=== PATIENT | female | born 2000 | race Caucasian/White ===

== ENCOUNTER 2020-05-13 05:42 | Observation (INO) ==
[2020-05-13 05:58] VITALS: BP 127/74
[2020-05-13] MEDS ORDERED: RINGER'S SOLUTION,LACTATED 1,000 ML IV PRN (07:58)
--- NOTE | 2020-05-13 09:24 | HP ---
Chief Complaint - Chief Complaint Date of Service: 05/13/20 Time of Service: 09:20 Chief Complaint: Fall History of Present Illness: 19 year old at 34w 5d who presented to L&D s/p fall. She slipped on the ice and then her knee hit her abdomen. She denies abdominal pain. She denies vb or lof. She initially was not feeling her ctx but now she is. Fetus is active. Medical History (Last Reviewed 05/13/20 @ 09:21 by Melissa Patterson MD) Migraines Onset Date: Unknown Body piercing Onset Date: Unknown Hypertension Onset Date: ~2018 Tattoos Onset Date: Unknown Wears contact lenses Onset Date: Unknown Labral tear of shoulder Onset Date: ~2015 right Surgical History: Surgical History (Last Reviewed 05/13/20 @ 09:21 by Melissa Patterson MD) History of appendectomy Onset Date: Unknown History of shoulder surgery Onset Date: Unknown right Family History: Family History (Last Reviewed 05/13/20 @ 09:22 by Melissa Patterson MD) Mother Alive and well Father Hypertension S/P CABG x 3 Social History: (Last Reviewed 05/13/20 @ 09:22 by Melissa Patterson MD) Social History: adopted: No fci: No Marital status: Single household members: significant other number of children: 0 current occupational status: employed current occupation: [employer] current occupational exposures/hazards: No Highest level of school completed/degree received: some college, no degree Sexually Active: Yes Service: No Tobacco: Smoking Status: Never smoker Alcohol: alcohol intake: current alcohol intake frequency: holiday/special occasion details: No alcohol since + UPT Substance Use: substance use type: does not use Dietary Habits: caffeine: No Exercise: frequency: other Lillian/Buddhism: agree to transfusion: Yes Review Of Systems (GEN) - Review of Systems Generalized/Overall Review: Present: No Symptoms Reported Misc: All systems neg except as marked Immunizations: IMMUNIZATION HX Immunizations Up to Date Yes History of Influenza Vaccine Yes Allergies/Adverse Reactions: Allergies Allergy/AdvReac Type Severity Reaction Status Date / Time No Known Allergies Allergy Verified 05/13/20 05:46 Home Medications: HOME MEDICATIONS prenat.vits,rachid,[id number] 1 tab PO DAILY 02/10/20 [Last Taken Unknown] aspirin 81 mg tablet,delayed release 81 mg PO DAILY 04/13/20 [Last Taken Unknown] magnesium 250 mg tablet 500 mg PO DAILY #30 tab 04/13/20 [Last Taken Unknown] Exam - Exam Vital Signs: Vital Signs - Last Taken Temp 35.9 C L 05/13/20 05:56 Pulse 83 05/13/20 05:56 Resp 18 05/13/20 05:56 BP 127/74 05/13/20 05:56 Pulse Ox 98 05/13/20 05:56 Constitutional: Present: Alert, Oriented x3, Cooperative, No distress ENT Exam: Present: hearing grossly normal Eye Exam: bilateral eye: normal inspection Neck: Present: normal inspection Back Exam: Present: normal inspection Breasts: Present: Exam deferred Respiratory: Present: lungs clear, normal breath sounds, no respiratory distress Cardiovascular/Chest: Present: regular rate, rhythm Abdomen: Present: soft, nontender, nondistended, no rebound tenderness Extremity: Present: non-tender, no calf tenderness Skin Exam: Present: normal color, warm/dry, no cyanosis Appearance: Present: appropriate appearance, appropriate insight, neat, no memory impairment Eye contact: Present: cooperative, good eye contact, normal speech Thoughts: Present: normal thought pattern Assessment/Plan - Narrative Narrative: 19 year old at 34w 5d 1. Fall: overnight observation due to regular contractions Collect GBS - Assessment/Plan (1) Fall Problem: Acute Qualifiers: Encounter type: initial encounter Qualified Code(s): W19.XXXA - Unspecified fall, initial encounter (2) 34 weeks gestation of Problem: Acute (3) contractions Problem: Acute (4) Chronic hypertension Problem: Acute
--- NOTE | 2020-05-14 11:37 | PN ---
Subjective - Date and Time Seen Date: 05/14/20 Time: 11:21 Subjective Narrative: Patient denies abdominal pain, vaginal bleeding or discharge, nausea/vomiting, or decreased movement. Complains of mild left ann pain from where she hit during the fall. Objective - Review of Systems Generalized/Overall Review: Reports: No Symptoms Reported EENTM: Reports: No Symptoms Reported Respiratory: Reports: No Symptoms Reported Cardiac: Reports: No Symptoms Reported Abdominal: Reports: No Symptoms Reported Genitourinary Symptoms: Reports: No Symptoms Reported Musculoskeletal Complaints: Reports: Other - left ann Neurological: Reports: No Symptoms Reported Skin: Reports: No Symptoms Reported Endocrine: Reports: No Symptoms Reported - Vitals Vitals: Last Vital Signs Temp 35.9 C L 05/13/20 05:56 Pulse 83 05/13/20 05:56 Resp 18 05/13/20 05:56 BP 127/74 05/13/20 05:56 Pulse Ox 98 05/13/20 05:56 - Exam Constitutional: Present: Alert, Oriented x3, Cooperative, No distress ENT Exam: Present: hearing grossly normal Neck: Present: non-tender, full range of motion, trachea midline. Absent: thyromegaly Breasts: Present: Exam deferred Respiratory: Present: lungs clear, no respiratory distress Cardiovascular/Chest: Present: normal peripheral pulses, regular rate, rhythm, no edema Abdomen: Present: soft, nontender, no rebound tenderness, other - gravid /Rectal: Present: Other - Cervix per nurse 150/-2 upon admission and discharge. Extremity: Present: normal range of motion, no pedal edema, no calf tenderness, other - minor abrasion on LLE ann Skin Exam: Present: normal color, warm/dry, no cyanosis Lymphatic: Present: no adenopathy Neurologic: Present: epidemiologist II-XII nml as tested, alert, normal mood/affect, oriented x 3 Appearance: Present: appropriate appearance, appropriate insight, neat, no memory impairment Eye contact: Present: cooperative Thoughts: Present: normal thought pattern, normal mood /affect Assessment/Plan - Problems/Diagnosis (1) Fall Problem: Acute Qualifiers: Encounter type: initial encounter Qualified Code(s): W19.XXXA - Unspecified fall, initial encounter (2) Threatened labor Problem: Resolved Qualifiers: Trimester: third trimester Qualified Code(s): O47.03 - False labor before 37 completed weeks of gestation, third trimester (3) At high risk for maternal or injury Problem: Acute (4) Chronic hypertension Problem: Chronic
--- NOTE | 2020-05-14 11:53 | DS ---
OB Discharge Summary (1) Fall Status: Acute Qualifiers: Encounter type: initial encounter Qualified Code(s): W19.XXXA - Unspecified fall, initial encounter (2) Threatened labor Status: Resolved Qualifiers: Trimester: third trimester Qualified Code(s): O47.03 - False labor before 37 completed weeks of gestation, third trimester (3) At high risk for maternal or injury Status: Acute (4) Chronic hypertension Status: Chronic :: 1 Para:: 0 Gestational weeks:: 33 Gestational days:: 6 Intrapartum Procedures: Undelivered - Discharge Information Date of Discharge: 05/14/20 Hospital Course: Patient presented to labor and delivery status post fall on 05/13/2020 complaining of painful contractions. Because patient was kelvin every 2 to 3 minutes she was admitted for prolonged observation to rule out abruption and labor. She made no cervical change throughout her hospitalization and her contractions resolved after several hours. She was discharged to home with abruption and labor precautions. Discharge Location: Home Disposition: Home self-care Condition: Good Activity on Discharge:: Activity as tolerated, Other - No heavy lifting or strenuous activity for the next 48 hours Complete Home Medications List: Complete Home Medication List: prenat.vits,rachid,sss-cstq-rfigv 1 tab PO DAILY 02/10/20 aspirin 81 mg tablet,delayed release 81 mg PO DAILY 04/13/20 magnesium 250 mg tablet 500 mg PO DAILY #30 tab 04/13/20 - Plan Discharge to:: Home Follow up in office in:: 1 week Follow Up Appointment:: 05/18/20
== END 2020-05-14 11:20 | disposition home or self-care (01) ==
LOC: OBCLINIC 05:42 → OB 05:42
PROVIDERS: ADMIT Obstetrics & Gynecology; ATTEND Obstetrics & Gynecology
DX: O47.03 False labor before 37 completed weeks of gestation, third trimester; W19.XXXA Unspecified fall, initial encounter; Z3A.34 34 weeks gestation of pregnancy; I10 Essential (primary) hypertension

== ENCOUNTER 2020-06-08 05:15 | Inpatient (IN) ==
[2020-06-08] MEDS ORDERED: DEXTROSE 5%-LACTATED RINGERS 1,000 ML IV PRN (05:34)
[2020-06-08] MEDS ORDERED: OXYTOCIN/0.9 % SODIUM CHLORIDE 30 UNITS/500 ML BAG IV ONE ×2 (05:34→11:56)
[2020-06-08] MEDS ORDERED: ONDANSETRON 4 MG TAB.RAPDIS PO PRN (05:34)
[2020-06-08] MEDS ORDERED: PENICILLIN G POTASSIUM 5 MILLIONUNT in DEXTROSE 5 % IN WATER 100 ML IV ONE ×2 (05:34)
[2020-06-08] MEDS ORDERED: RINGER'S SOLUTION,LACTATED 1,000 ML IV ONE (05:34)
[2020-06-08] MEDS ORDERED: ONDANSETRON HCL/PF 2 MG/ML VIAL IV PRN (05:41)
[2020-06-08] MEDS ORDERED: BUPIVACAINE HCL/0.9 % NACL/PF 250 ML EP PRN (05:41)
[2020-06-08] MEDS ORDERED: NALOXONE HCL 1 MG/1 ML SYRG IV PRN (05:41)
[2020-06-08] MEDS ORDERED: BUPIVACAINE HCL/PF 30 ML VIAL EP SCH (05:45)
--- NOTE | 2020-06-08 06:26 | ANES ---
Anesthesia Pre Procedure Eval HOME MEDICATIONS prenat.vits,rachid,vfr-[id number]-[id number] 1 tab PO DAILY 02/10/20 [Last Taken 05/27/20] aspirin 81 mg tablet,delayed release 81 mg PO DAILY 04/13/20 [Last Taken 05/27/20] magnesium 250 mg tablet 500 mg PO DAILY #30 tab 04/13/20 [Last Taken 05/27/20] Allergies/Adverse Reactions: Allergies Allergy/AdvReac Type Severity Reaction Status Date / Time No Known Allergies Allergy Verified 06/08/20 05:36 - Planned Procedure Planned Procedure: Labor Epidural Medication List Reviewed:: Yes Allergies Verified: Yes Medical History (Last Reviewed 06/08/20 @ 06:25 by Carl Ross CRNA) Bacterial vaginosis in (Acute) Migraines Onset Date: Unknown Body piercing Onset Date: Unknown Hypertension Onset Date: ~2018 Tattoos Onset Date: Unknown Wears contact lenses Onset Date: Unknown Labral tear of shoulder Onset Date: ~2015 right Surgical History (Last Reviewed 06/08/20 @ 06:25 by Carl Ross CRNA) History of appendectomy Onset Date: Unknown History of shoulder surgery Onset Date: Unknown right Family History (Last Reviewed 06/08/20 @ 06:25 by Carl Ross CRNA) Mother Alive and well Father Hypertension S/P CABG x 3 - Anesthesia Assessment and Plan ASA Class: PS, II, E Anesthesia Type Plan: Epidural
--- NOTE | 2020-06-08 06:43 | ANES ---
Anesthesia Procedure Note Procedure Note: ANESTHESIA PROCEDURE NOTE Date of Procedure: 06/08/2020. Time of procedure: 624. Performed by: Carl Ross CRNA Rug Layer: None. Preprocedure diagnosis: Active labor. Post procedure diagnosis: Same. Procedure: Insertion of labor epidural. Indications: The patient is a 19-year-old female in active labor requesting labor epidural for pain management. Findings: See below. Details of the procedure: The patient was placed in a sitting position. DuraPrep as well as Betadine swabs X3 was applied to the patient's back. Patient was then draped in a sterile fashion. Lidocaine 1% was infiltrated to the skin and subcutaneous tissues at the level of the L3-4 interspace. The epidural space was identified using a 18-gauge Tuohy needle with [id number] technique. Epidural catheter was inserted to a depth of 12 centimeters at skin. Negative test dose was elicited using 3 mL of 1.5% preservative-free lidocaine plus epinephrine 1 200,000. The epidural catheter was then taped and secured in place. A loading dose of 8 mL of 0.25% preservative-free bupivacaine was administered to the epidural catheter after negative aspiration for blood and CSF. EBL: Minimal. Fluids: N/A. Specimen: N/A. Post procedure condition: The patient tolerated the procedure well. No complications were noted. Thank you for this consultation. Carl Ross CRNA
--- NOTE | 2020-06-08 06:43 | ANES ---
Post Anesthesia Assessment - Vital Signs Airway Patency: Normal - Mental Status Level Of Consciousness: Awake - N/V Assessment Nausea/Vomiting Presence: None Dehydration:: No
--- NOTE | 2020-06-08 07:05 | HP ---
Chief Complaint - Chief Complaint Date of Service: 06/08/20 Time of Service: 06:53 Chief Complaint: contractions, ROM History of Present Illness: 19 yo at 38w3d presents to L&D complaining of painful contractions and SROM around 0430 this am. This complicated by anemia, CHTN, and h/o migraines. Rh positive Rubella immune GBS positive Medical History (Last Reviewed 06/08/20 @ 06:57 by Jhonny Bustillo DO) Bacterial vaginosis in (Acute) Migraines Onset Date: Unknown Body piercing Onset Date: Unknown Hypertension Onset Date: ~2018 Tattoos Onset Date: Unknown Wears contact lenses Onset Date: Unknown Labral tear of shoulder Onset Date: ~2015 right Surgical History: Surgical History (Last Reviewed 06/08/20 @ 06:58 by Jhonny Bustillo DO) History of appendectomy Onset Date: Unknown History of shoulder surgery Onset Date: Unknown right Family History: Family History (Last Reviewed 06/08/20 @ 06:58 by Jhonny Bustillo DO) Mother Alive and well Father Hypertension S/P CABG x 3 Social History: (Last Reviewed 06/08/20 @ 06:58 by Jhonny Bustillo DO) Social History: adopted: No jail: No Marital status: Single household members: significant other number of children: 0 current occupational status: employed current occupation: [employer] current occupational exposures/hazards: No Highest level of school completed/degree received: some college, no degree Sexually Active: Yes Service: No Tobacco: Smoking Status: Never smoker Alcohol: alcohol intake: current alcohol intake frequency: holiday/special occasion details: No alcohol since + UPT Substance Use: substance use type: does not use Dietary Habits: caffeine: No Exercise: frequency: other Lillian/Tenriism: agree to transfusion: Yes Review Of Systems (GEN) - Review of Systems Generalized/Overall Review: Present: No Symptoms Reported EENTM: Present: No Symptoms Reported Respiratory: Present: No Symptoms Reported Cardiac: Present: No Symptoms Reported Abdominal: Present: Other - painful contractions Genitourinary: Present: Other - LOF - clear per pt Musculoskeletal: Present: No Symptoms Reported Neurological: Present: No Symptoms Reported Skin: Present: No Symptoms Reported Endocrine: Present: No Symptoms Reported Immunizations: IMMUNIZATION HX Immunizations Up to Date Yes History of Influenza Vaccine Yes Allergies/Adverse Reactions: Allergies Allergy/AdvReac Type Severity Reaction Status Date / Time No Known Allergies Allergy Verified 06/08/20 05:36 Home Medications: HOME MEDICATIONS prenat.vits,rachid,dgd-dlny-wkzuw 1 tab PO DAILY 02/10/20 [Last Taken 05/27/20] aspirin 81 mg tablet,delayed release 81 mg PO DAILY 04/13/20 [Last Taken 05/27/20] magnesium 250 mg tablet 500 mg PO DAILY #30 tab 04/13/20 [Last Taken 05/27/20] Exam - Exam Vital Signs: Vital Signs - Last Taken Temp 37.0 C 06/08/20 06:44 Pulse 89 06/08/20 06:44 Resp 18 06/08/20 06:44 BP 140/73 H 06/08/20 06:44 Constitutional: Present: Alert, Oriented x3, Cooperative, Moderate distress ENT Exam: Present: hearing grossly normal Neck: Present: non-tender, supple, trachea midline. Absent: thyromegaly Respiratory: Present: lungs clear, no respiratory distress Cardiovascular/Chest: Present: regular rate, rhythm Abdomen: Present: soft, nontender, no rebound tenderness, other - gravid /Rectal: Present: Other - Cervix - 5/90/-1, no BOW felt Extremity: Present: no pedal edema, claudication Skin Exam: Present: normal color, warm/dry, no cyanosis Neurologic: Present: alert, normal mood/affect, oriented x 3 Appearance: Present: appropriate appearance, appropriate insight, other - obviously in pain with contractions Eye contact: Present: cooperative, good eye contact Thoughts: Present: normal thought pattern, normal mood /affect Assessment/Plan - Assessment/Plan (1) Labor established Assessment: Admit for routine management of labor. Epidural and pitocin PRN. IV PCN per GBS prophylaxis. Problem: Acute (2) SROM (spontaneous rupture of membranes) Assessment: 0430, clear per pt. Problem: Acute (3) GBS (group B Streptococcus carrier), +RV culture, currently Problem: Acute (4) Chronic hypertension Assessment: No BP meds. Taking baby ASA for preeclampsia prophylaxis. Problem: Chronic (5) Migraines Problem: Chronic Qualifiers: Migraine type: unspecified Status migrainosus presence: without status migrainosus Intractability: not intractable Qualified Code(s): G43.909 - Migraine, unspecified, not intractable, without status migrainosus
[2020-06-08 07:34] LABS: Cocaine Ur Negative (NEGATIVE); Urine Barbiturate Negative (NEGATIVE); Urine Benzodiazepines Negative (NEGATIVE); Urine Opiates Negative (NEGATIVE); Urine PCP Negative (NEGATIVE); Urine THC Negative (NEGATIVE)
--- NOTE | 2020-06-08 07:59 | PN ---
Progess Note - Interim Date: 06/08/20 Time: 07:57 Narrative: 06/08/20 07:57 Patient comfortable with epidural Vital signs stable. FHT: 135 baseline, reassuring contractions q 1-1/2-2 min Cervix: Rim/-1 Impression: Intrauterine at 38 3/7 weeks in labor. GBS carrier-status post 1 dose of IV penicillin. Next dose due at 945 Plan: Anticipate normal spontaneous vaginal delivery soon
[2020-06-08] MEDS ORDERED: PENICILLIN G POTASSIUM 2.5 MILLIONUNT in DEXTROSE 5 % IN WATER 100 ML IV SCH ×2 (09:34)
--- NOTE | 2020-06-08 11:53 | OR ---
Operative Report - Dictated Report Narrative: Spontaneous vaginal delivery of vigorously crying viable male at 1105 on 06/08/2020 with Apgars 9 and 9, weighing 3691 g in DHAVAL position with tight nuchal cord x1. Cord clamping delayed approximately 1 minute Placenta delivered complete, intact, with three vessel cord Estimated blood loss: 150 mL Anesthesia: Epidural Lacerations: Bilateral labial lacerations repaired with 4-0 Vicryl Rapide. History for MU History for Definition: * The number of deliveries resulting in a live the patient experienced prior to current hospitalization * The previous delivery of live twins or any live multiple gestation is considered one live event. *If primagravida or nulliparous is documented select zero for the number of previous live births. Live Events: Live Events: 0
[2020-06-08] MEDS ORDERED: SENNOSIDES 8.6 MG TABLET PO PRN (11:56)
[2020-06-08] MEDS ORDERED: HYDROCORTISONE 30 APPL TUBE TP PRN (11:56)
[2020-06-08] MEDS ORDERED: oxyCODONE HCL/ACETAMINOPHEN 1 TAB TABLET PO PRN (11:56)
[2020-06-08] MEDS ORDERED: BISACODYL 10 MG SUPP.RECT RC PRN (11:56)
[2020-06-08] MEDS ORDERED: IBUPROFEN 800 MG TABLET PO PRN ×2 (11:56)
[2020-06-08] MEDS ORDERED: GLYCERIN/WITCH HAZEL LEAF 40 APPL BOX TP PRN (11:56)
[2020-06-08] MEDS ORDERED: BENZOCAINE/MENTHOL 81 SPRAY CAN TP PRN (11:56)
[2020-06-08] MEDS: DOCUSATE SODIUM 100 MG CAPSULE PO SCH (20:50)
[2020-06-09] MEDS: DOCUSATE SODIUM 100 MG CAPSULE PO SCH ×2 (08:58→21:35)
[2020-06-09] MEDS ORDERED: NEOMYCIN/BACITRACIN/POLYMYXINB 15 APPL TUBE TP PRN (11:26)
--- NOTE | 2020-06-09 11:50 | PN ---
Subjective - Date and Time Seen Date: 06/09/20 Time: 11:49 Objective - Vitals Vitals: Last Vital Signs Temp 36.2 C 06/09/20 06:45 Pulse 79 06/09/20 06:45 Resp 18 06/09/20 06:45 BP 128/64 06/09/20 06:45 Pulse Ox 99 06/09/20 06:45 Patient denies complaints. Lochia wnl abdomen - soft, nontender Uterus -firm, at umbilicus - 1 No calf tenderness Impression: day #1 - s/p spontaneous vaginal delivery. Chronic hypertension-stable Plan: Continue routine care Cauti Physician Documentation - Urinary Catheter Management Urethral (Cormier) Date of Insertion: 06/08/20 Time of Insertion: 06:55 Date of Removal: 06/08/20 Time of Removal: 09:30 Assessment/Plan - Problems/Diagnosis (1) Labor established Problem: Resolved (2) SROM (spontaneous rupture of membranes) Problem: Resolved (3) GBS (group B Streptococcus carrier), +RV culture, currently Problem: Resolved (4) Chronic hypertension Problem: Chronic (5) Migraines Problem: Inactive Qualifiers: Migraine type: unspecified Status migrainosus presence: without status migrainosus Intractability: not intractable Qualified Code(s): G43.909 - Migraine, unspecified, not intractable, without status migrainosus
[2020-06-09] MEDS ORDERED: NEOMYCIN/BACITRACIN/POLYMYXINB 30 APPL TUBE TP PRN (12:00)
[2020-06-10 08:21] VITALS: BP 108/71
[2020-06-10] MEDS: DOCUSATE SODIUM 100 MG CAPSULE PO SCH (10:28)
--- NOTE | 2020-06-10 11:02 | PN ---
Subjective - Date and Time Seen Date: 06/10/20 Time: 10:45 Objective - Vitals Vitals: Last Vital Signs Temp 36.6 C 06/10/20 08:19 Pulse 91 06/10/20 08:19 Resp 18 06/10/20 08:19 BP 108/71 06/10/20 08:19 Pulse Ox 97 06/10/20 08:19 Patient denies complaints. Breast-feeding well Lochia wnl abdomen - soft, nontender Uterus -firm, at umbilicus - 2 No calf tenderness Impression: day #2 - s/p spontaneous vaginal delivery. Chronic hypertension-inactive Plan: Routine discharge instructions Cauti Physician Documentation - Urinary Catheter Management Urethral (Cormier) Date of Insertion: 06/08/20 Time of Insertion: 06:55 Date of Removal: 06/08/20 Time of Removal: 09:30 Assessment/Plan - Problems/Diagnosis (1) Labor established Problem: Resolved (2) SROM (spontaneous rupture of membranes) Problem: Resolved (3) GBS (group B Streptococcus carrier), +RV culture, currently Problem: Resolved (4) Chronic hypertension Problem: Inactive (5) Migraines Problem: Inactive Qualifiers: Migraine type: unspecified Status migrainosus presence: without status migrainosus Intractability: not intractable Qualified Code(s): G43.909 - Migraine, unspecified, not intractable, without status migrainosus
--- NOTE | 2020-06-10 11:05 | DS ---
OB Discharge Summary (1) Labor established Status: Resolved (2) SROM (spontaneous rupture of membranes) Status: Resolved (3) GBS (group B Streptococcus carrier), +RV culture, currently Status: Resolved (4) Chronic hypertension Status: Inactive (5) Migraines Status: Inactive Qualifiers: Migraine type: unspecified Status migrainosus presence: without status migrainosus Intractability: not intractable Qualified Code(s): G43.909 - Migraine, unspecified, not intractable, without status migrainosus Delivery Date: 06/08/20 Delivery Time: 11:05 :: 1 Para:: 1 Gestational weeks:: 38 Gestational days:: 3 Intrapartum Procedures: Spontaneous Vaginal Delivery, Delivered, Anesthesia - Epidural Procedures: Other - Repaired bilateral labial lacerations. /OP Complications: Other - Bilateral labial lacerations Discharge Diagnosis: Term -Delivered, Rubella Immune - Discharge Information Date of Discharge: 06/10/20 Hospital Course: 19-year-old 1 now para 1 admitted at 38-1/7 weeks in labor with spontaneous rupture of membranes. Her labor, delivery, and course were uncomplicated. Discharge Location: Home Disposition: Home self-care Condition: Good Activity on Discharge:: Activity as tolerated Discharge Diet: General/regular food Additional Patient Instructions (free text): luiz Haynes follow up appt is July 06 at 2:[address] Keny Dodson's Follow up appt is on Friday06/12/20 @ 8:00AM with Dr Mercado. His Weight Today is 7lbs 9.5oz His Blood Type is O+. His Bilirubin is 8.6 at 41 hours of life Feed on demand or at least every 2-[address] Ivory on his back in his own crib or bassinet for sleep. No pillows, blankets, stuffed animals, or bumper pads in his sleep space. Please call with any questions/concerns. [facility] [phone], [facility] [phone], [facility] [phone]. Prescriptions (Any new or edited meds): Ferrous Sulfate 325 mg PO DAILY #60 tab Ibuprofen [Motrin] 200 - 800 mg PO Q6H PRN #100 tab PRN Reason: Pain Complete Home Medications List: Complete Home Medication List: Vits96/Iron Fum/Folic [ S] 1 tab PO DAILY 06/08/20 Pyridoxine HCl (Vitamin B6) [Vitamin B-6] 25 mg PO DAILY 06/08/20 Ferrous Sulfate 325 mg PO DAILY #60 tab 06/09/20 Ibuprofen [Motrin] 200 - 800 mg PO Q6H PRN #100 tab 06/09/20 - Plan Discharge to:: Home Follow up in office in:: 3-4 weeks - Information Weight (Grams): 3,691 Infant Sex: Male Score 1 min: 9 Score 5 min: 9 Other Complications: NC x1, Terminal mec
== END 2020-06-10 14:00 | disposition home or self-care (01) ==
LOC: OBCLINIC 05:15 → OB 05:29
PROVIDERS: ADMIT Obstetrics & Gynecology; ATTEND Obstetrics & Gynecology